=== PATIENT | female | born 1960 | race Caucasian/White ===

== ENCOUNTER → 2018-03-12 01:47 | Outpatient (CLI) | payer BC, SELFPAY ==
--- NOTE | 2018-03-12 10:40 | DI.REPORT_ITS ---
SYMPTOM/DIAGNOSIS: SCREENING, Z12.31 MAMMOGRAM: 03/12 Mammograms were interpreted according to the usual protocol including computer analysis with CAD system, tomosynthesis and C view imaging. The breasts are of moderate density with fairly symmetrical distribution of fibroglandular tissue. No dominant mass or clumped microcalcification is identified in either breast The current examination is compared with previous examinations including February 2017 and there has been no gross interval change in appearance in comparison with the previous studies CONCLUSION: No specific evidence of malignancy at this time. Routine screening examinations are suggested at yearly intervals in this age group according to the ACS/ACR guidelines. Category 1, breast density category B . MQSA ASSESSMENT OF FINDINGS: Negative. Category 1. Patient will receive a letter notifying them of these results. BI-RADS category B. There are scattered areas of fibroglandular density.
== END ==
PROVIDERS: PCP Nurse Practitioner Family; Visit Provider Obstetrics & Gynecology Gynecology
DX: Z12.31 Encounter for screening mammogram for malignant neoplasm of breast (principal)
CPT/HCPCS: 77063; 77067

== ENCOUNTER 2018-06-03 06:50 | Outpatient (CLI) | payer BC, SELFPAY ==
[2018-06-03 08:47] LABS: Anion Gap 7.8 mmol/L (3-11); BUN 23 mg/dL (7-18); CO2 31.2 mmol/L (21.0-32.0); CREATININE 0.86 mg/dL (0.55-1.02); Calcium 9.4 mg/dL (8.5-10.1); Chloride 106 mmol/L (98-107); Cholesterol 207 mg/dL (50-200); Glucose 100 mg/dL (70-100); HDL Cholesterol 58 mg/dL (40-60); LDL CHOLESTEROL 134 mg/dL (<100); Potassium 3.7 mmol/L (3.5-5.1); Sodium 145 mmol/L (136-145); TSH 3.13 uIU/mL (0.358-3.74); Triglyceride 108 mg/dL (30-150)
[2018-06-03 09:04] LABS: FREE T4 0.83 ng/dL (0.76-1.46)
== END 2018-06-03 07:10 ==
PROVIDERS: PCP Nurse Practitioner Family; Visit Provider Nurse Practitioner Family
DX: E78.5 Hyperlipidemia, unspecified (principal); E04.1 Nontoxic single thyroid nodule
CPT/HCPCS: 36415; 80048; 80061; 83721; 83735; 84439; 84443

== ENCOUNTER 2019-03-15 00:13 | Outpatient (CLI) | payer OTHER, SELFPAY ==
--- NOTE | 2019-03-15 10:44 | DI.MAMMO_ITS ---
SYMPTOM/DIAGNOSIS: SCREENING Z12.31 BILATERAL SCREENING MAMMOGRAM: Mammograms were interpreted according to the usual protocol including computer analysis with CAD system, tomosynthesis and C view imaging. Comparison is made with exams from 2014 through 2018 The breasts are composed of scattered fibroglandular densities, breast density category B. No suspicious masses or suspicious microcalcifications are seen. There has been no significant change. IMPRESSION: Category 1, negative mammogram. Yearly screening mammography is recommended. Breast density category B. SA ASSESSMENT OF FINDINGS: Negative. Category 1. Patient will receive a letter notifying them of these results. BI-RADS category B. There are scattered areas of fibroglandular density.
== END 2019-03-15 00:33 ==
PROVIDERS: PCP Nurse Practitioner Family; Visit Provider Obstetrics & Gynecology Gynecology
DX: Z12.31 Encounter for screening mammogram for malignant neoplasm of breast (principal)
CPT/HCPCS: 77063; 77067

== ENCOUNTER 2019-05-30 08:30 | Emergency (ER) | payer OTHER, SELFPAY ==
[2019-05-30 08:33] VITALS: BP 162/87; PULSE 61; TEMP 36.6; O2SAT 95
[2019-05-30 08:40] VITALS: RESP 18
--- NOTE | 2019-05-30 08:48 | DI.RAD_ITS ---
EXAM: XR CHEST 2V PA LATERAL INDICATION: Unprovoked hemoptysis. COMPARISON: CHEST 2 VIEWS PA,LAT from 10/17/2017 TECHNIQUE: 2D digital imaging was performed. FINDINGS: Heart size and pulmonary vasculature are unremarkable. The lungs are clear. No pleural effusion or pneumothorax is identified. Age-appropriate degenerative changes are seen in the spine. IMPRESSION: No acute pulmonary process.
--- NOTE | 2019-05-30 08:56 | ED.GENADUL_ITS ---
Discharge Plan Disposition Patient Disposition: HOME Condition: Stable Discharge Details Chief Complaint: GenMedical Clinical Impression: Coughing up blood Primary Care Provider: Liyah Weaver ED Provider: Kaushal Calvillo Home Meds and New Rx's Prescriptions: No Action estradiol [Yuvafem] 10 mcg tablet 10 mcg VG twice weekly Qty: 16 RF: 6 topiramate [Topamax] 100 mg tablet 100 mg PO HS Qty: 30 RF: 11 multivitamin [Daily Multi-Vitamin] 1 EACH tablet 1 ea PO DAILY RF: 0 aspirin [Aspir-81] 81 MG tablet,delayed release (DR/EC) 81 mg PO DAILY RF: 0 omega-3 fatty acids-fish oil 1 EACH capsule 1 ea PO DAILY RF: 0 losartan 50 mg tablet 50 mg PO DAILY Qty: 90 RF: 4 hydrochlorothiazide 25 mg tablet 12.5 mg PO DAILY Qty: 45 RF: 4 Discharge Instructions Additional Instructions: 1. Drink plenty of fluids. 2. Continue all medications as prescribed. 3. Follow-up with your doctor for reevaluation and possible further testing. 4. Return for recurrent, worsening coughing up of blood. Return to the Emergency Department (ED) if your condition worsens, does not improve as expected, or for ANY other concerns. Specifically, return if you have new or uncontrolled pain, worsening fever, difficulty breathing, vomiting, or are unable to drink fluids. Discharge Data Discharge Date/Time-TO BE ENTERED AT DEPARTURE: 05/30/19 10:19 Medical Decision Making 59-year-old with unremarkable past medical history presents for evaluation of acute unprovoked hemoptysis. Has had multiple episodes starting late last night and persisting through this morning while outside doing her chores. Onset not associate any specific other constitutional complaints including no infectious symptoms, chest pain or dyspnea, or atypical leg pain or swelling. Nonfocal exam. Chest x-ray negative labs normal including negative hemogram, coagulation studies, and UA. Patient observed in the ED with no further episodes of hemoptysis and remained stable with normal vital signs. Discussed unclear etiology including a reassuring negative chest x-ray. Discharged with a plan for outpatient PCP follow-up and additional testing as per recurrent hemoptysis or not. Also discussed need to return to the ED for any progressive symptoms. Given usual customary return instructions the time of discharge. Medical Records Medical records reviewed: Yes I reviewed the patient's medical records. Lab Data Lab results reviewed: Yes I reviewed the patient's lab results. Lab results narrative: Normal hemoglobin, PTT, INR HPI 59-year-old woman with a past medical history which includes essential hypertension, essential tremor, hyperlipidemia, and GERD. She is chronically on aspirin, hydrochlorothiazide, losartan, and a PPI for her GERD. She presents with new onset hemoptysis. She notes developing cough late yesterday evening and subsequently was unable to lie supine because of a cough reflex from that position. She had intermittent coughing with associated phlegm production overnight but had been swallowing her phlegm and did not note its color. This morning, she spit out phlegm after coughing and noted that it was bright red/bloody. She has had persistent bloody phlegm production with each episode of coughing. She denies fever/chills, dyspnea, palpitations, pleuritic chest pain, diaphoresis, or subjective fatigue. She has mild increase in throat discomfort from coughing. She denies abdominal pain, change in bowel habits, me mackenzie, hematochezia. She has had no atypical lower extremity swelling or pain. She denies a history of any previous bleeding, VTE, or anticoagulant use. General Date/Time Provider Initiated Documentation: 05/30/19 08:38 . Related Data Home Medications Medication Instructions Recorded Confirmed aspirin [Aspir-81] 81 mg PO DAILY tab-cap 11/29/12 05/30/19 multivitamin [Daily Multi-Vitamin] 1 ea PO DAILY tab-cap 11/29/12 05/30/19 omega-3 fatty acids-fish oil 1 ea PO DAILY tab.chew 11/29/12 05/30/19 losartan 50 mg tablet 50 mg PO DAILY #90 tab-cap 08/31/18 05/30/19 hydrochlorothiazide 25 mg tablet 12.5 mg PO DAILY #45 tab-cap 10/04/18 05/30/19 estradiol 10 mcg vaginal tablet 10 mcg VG twice weekly #16 tab 12/17/18 05/30/19 topiramate 100 mg tablet 100 mg PO HS #30 tab-cap 03/28/19 05/30/19 Previous Rx's Medication Instructions Recorded losartan 50 mg tablet 50 mg PO DAILY #90 tab-cap 08/31/18 hydrochlorothiazide 25 mg tablet 12.5 mg PO DAILY #45 tab-cap 10/04/18 estradiol 10 mcg vaginal tablet 10 mcg VG twice weekly #16 tab 12/17/18 topiramate 100 mg tablet 100 mg PO HS #30 tab-cap 03/28/19 Allergies Allergy/AdvReac Type Severity Reaction Status Date / Time honey Allergy Severe throat Verified 03/28/19 11:22 closes amoxicillin Allergy Swellling Unverified 03/28/19 11:22 of tongue lisinopril AdvReac Severe cough Unverified 03/28/19 11:22 carame AdvReac Mild migraine Uncoded 03/28/19 11:22 peanuts AdvReac Mild migraine Uncoded 03/28/19 11:22 General Stated Complaint: GenMedical PHILIPP: 4 Review of Systems All systems reviewed & are unremarkable except as noted in HPI and below PFSH Medical History Essential hypertension (Chronic 07/15/13) Essential tremor (Chronic) Gastroesophageal reflux disease (Chronic) Hyperlipidemia (Chronic) Non-toxic uninodular goiter (Chronic) Surgical History History of bladder suspension procedure (Resolved ~2004) [place]. 2004. History of hysterectomy for benign disease (Acute ~1997) For DUB; Ovaries conserved S/P left rotator cuff repair (Acute ~07/2015) S/P right rotator cuff repair (Acute ~02/2012) Family History Mother , at 66 Senile dementia Multiple sclerosis Father , at 71 Diabetes Essential hypertension Heart disease Brother No problems noted. Brother Epilepsy Osteoporosis medication induced Brother Crohn's disease Son No problems noted. Daughter Breast lump Maternal Grandfather , of [place] in his 80s Essential hypertension Heart disease Myocardial infarction Maternal Grandmother , of meningitis No problems noted. Paternal Grandfather , Of old age No problems noted. Paternal Grandmother , of colon cancer in her 90s Colon cancer in her 90s Social History Smoking/Tobacco Use Status: Never Alcohol Intake: current Alcohol Intake frequency: a few times a month Alcohol type: beer and hard liquor Substance use type: does not use Household members: spouse and other Details: Laura. 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 Works at his [employer]. Issues with obesity, is considering gastric bypass. [employer]. . is like training school in [place]. History History 2 Para Hx # Term Pregnancies 2 Multiple births Hx # Pregnancies Ectopic pregnancies AB induced Hx Number of Living Children 2 AB spontaneous Exam Narrative Exam Narrative: Nursing note and vital signs have been reviewed and noted. GENERAL: alert, active, no acute distress, well -hydrated, well-nourished HEENT: atraumatic/normocephalic, PERRLA, EOMI, conjunctiva clear, external ears/canals normal, nasal mucosa normal NECK: supple, full range of motion, no mass, normal lymphadenopathy, no thyromegaly CARDIOVASCULAR: RRR, no murmurs, nl pulses, no edema PULMONARY: nl effort, no audible wheezing or stridor, nl breath sounds with no focal deficit. no chest wall tenderness ABDOMEN: soft, non-tender, non-distended, no mass, no organomegaly EXTREMITY: normal muscle tone, all joints with FROM, no deformity or tenderness SKIN: no exanthem appreciated NEURO: gross motor exam normal, normal stance and gait PSYCH: alert and oriented, Course Vital Signs Vital signs: Vital Signs Temperature 97.9 F 05/30/19 08:33 Pulse 61 05/30/19 08:33 Blood Pressure 162/87 H 05/30/19 08:33 Pulse Oximetry 95 05/30/19 08:33 Temperature 97.9 F 05/30/19 08:33 Temperature Source Skin 05/30/19 08:33 Pulse 61 05/30/19 08:33 Respiratory Rate 18 05/30/19 08:40 Respiratory Effort Non-Labored 05/30/19 08:40 Respiratory Depth Normal 05/30/19 08:40 Respiratory Pattern Normal 05/30/19 08:40 Blood Pressure 162/87 H 05/30/19 08:33 Blood Pressure Position Sitting 05/30/19 08:33 Pulse Oximetry 95 05/30/19 08:33 Oxygen Delivery Method Room Air 05/30/19 08:33 Oxygen Flow Rate 0 05/30/19 08:33 Pain Level 0 05/30/19 08:33
[2019-05-30 09:08] LABS: Abs Immature Grans 0.01 k/cumm (0.0-0.09); Absolute Basophil Count 0.02 k/cumm (0.0-0.2); Absolute Eosinophil Count 0.07 k/cumm (0.0-0.7); Absolute Lymphocyte Count 1.71 k/cumm (1.2-3.4); Absolute Monocyte Count 0.23 k/cumm (0.11-0.7); Absolute Neutrophil Count 3.03 k/cumm (1.2-6.7); Basophils % 0.4; Eosinophils % 1.4; HCT 39.5 % (36.0-46.0); HGB 13.6 g/dL (12.0-15.5); Immature Grans % 0.2; Lymphocytes % 33.7; Mean Corp. HGB Concentration 34.4 g/dL (32.0-36.0); Mean Corpuscular Hemoglobin 29.2 pg (27.0-33.0); Mean Corpuscular Volume 84.9 fL (80-95); Mean Platelet Volume 9.9 fL (8.0-11.0); Monocytes % 4.5; Neutrophils % 59.8; Platelet Count 265 x1000/uL (130-400); RBC 4.65 m/cumm (4.00-5.20); RBC Distribution Width 12.6 % (11.7-14.6); White Blood Cell Count 5.07 k/cumm (4.4-10.8)
[2019-05-30 09:22] LABS: PTT Activated 24.8 sec (21.0-31.4); Prothrombin Time 10.2 sec (9.3-11.0)
[2019-05-30] MEDS: Normal Saline 1,000 ML 150 ML IV (09:25)
[2019-05-30 09:40] LABS: Anion Gap 9.7 mmol/L (3-11); BUN 17 mg/dL (7-18); CO2 26.3 mmol/L (21.0-32.0); CREATININE 0.86 mg/dL (0.55-1.02); Calcium 9.4 mg/dL (8.5-10.1); Chloride 108 mmol/L (98-107); Glucose 97 mg/dL (70-100); Potassium 3.1 mmol/L (3.5-5.1); Sodium 144 mmol/L (136-145)
[2019-05-30 10:11] LABS: Bilirubin Negative (Negative); Blood Negative (Negative); Clarity Clear (Clear); Glucose Negative (Negative); Ketones Negative (Negative); Leukocyte Esterase Negative (Negative); Nitrite Negative (Negative); Urobilinogen 0.2 EU/dL (Up TO 0.2); pH 5.5 (5-8)
--- NOTE | 2019-05-30 11:13 | NUR.NOTE ---
i have called to make an appointment at [facility] to address hypertension, spoke with Ailyn (healthcare receptionist) and she has scheduled the patient for June 07 at 10 am, Ailyn states that Delisa is a new patient and should keep her original appointment on 06/28. i have spoke with the patient and let her know when her new appointment is and to keep the old one. i have advised Delisa she should also call [facility] if she cant make it to the appointment. Nursing Note:
== END 2019-05-30 10:19 | disposition home or self-care (01) ==
PROVIDERS: Emergency Provider Emergency Medicine; PCP Nurse Practitioner Family
DX: R04.2 Hemoptysis (principal)
CPT/HCPCS: 36415; 80048; 96360; 99283; 71046; 81003; 85025; 85610; 85730

== ENCOUNTER 2019-06-14 00:53 | Outpatient (CLI) | payer OTHER, SELFPAY ==
--- NOTE | 2019-06-14 11:16 | DI.US_ITS ---
EXAM: US THYROID CLINICAL HISTORY: Re-eval goiter, nontoxic uninodular goiter, E04.1 TECHNIQUE: Ultrasound performed using standard protocol. COMPARISON: No exams were available for comparison FINDINGS: The right lobe of the thyroid measures 4.2 x 1.0 x 1.6 cm. A 6 millimeter circumscribed hypoechoic n odule is seen in the mid to lower pole of the right lobe. A 7 x 7 x 9 millimeter slightly hypoechoic smoothly marginated nodule is seen at the lower pole of the right lobe. The left lobe measures 4.1 x 1.0 x 1.6 cm. A 5 millimeter circumscribed hypoechoic nodule is seen in the mid left lobe. An additio nal 5 millimeter isoechoic nodule is seen near the lower pole of the left lobe. There are normal appe aring anterior cervical chain lymph nodes. IMPRESSION: Small bilateral benign appearing nodules. Overall normal size gland.
== END 2019-06-14 01:13 ==
PROVIDERS: PCP Nurse Practitioner Family; Visit Provider Nurse Practitioner Family
DX: E04.1 Nontoxic single thyroid nodule (principal); E04.2 Nontoxic multinodular goiter
CPT/HCPCS: 76536

== ENCOUNTER 2019-06-15 00:50 | Outpatient (CLI) | payer OTHER, SELFPAY ==
[2019-06-15 10:15] LABS: Hemoglobin A1C 5.8 % (4.5-6.2)
[2019-06-15 10:17] LABS: FREE T4 0.93 ng/dL (0.76-1.46)
[2019-06-15 11:01] LABS: Calculated LDL 119 mg/dL; Cholesterol 185 mg/dL (<200); HDL Cholesterol 52 mg/dL (40-60); Triglyceride 72 mg/dL (<150)
== END 2019-06-15 01:10 ==
PROVIDERS: PCP Nurse Practitioner Family; Visit Provider Nurse Practitioner Family
DX: E78.5 Hyperlipidemia, unspecified (principal); E04.1 Nontoxic single thyroid nodule
CPT/HCPCS: 36415; 80061; 83036; 84439; 84443

== ENCOUNTER 2020-03-16 03:57 | Outpatient (CLI) | payer OTHER, SELFPAY ==
--- NOTE | 2020-03-16 13:00 | DI.MAMMO_ITS ---
EXAM: MG MAMMO SCREENING CLINICAL HISTORY: screening TECHNIQUE: Mammograms were interpreted according to the usual protocol including computer analysis w [employer] CAD system, tomosynthesis and C-view imaging. COMPARISON: FINDINGS: The breasts are of moderate density with fairly symmetrical distribution of fibroglandular tissue. N o dominant mass or clumped microcalcification is identified in either breast. The current examinatio n is compared with previous examinations including February 2019 and there has been no gross interval c hange in appearance in comparison with the prior studies. IMPRESSION: No specific evidence of malignancy at this time. Routine screening examinations are suggested at yea rly intervals in this age group according to the ACS ACR guidelines. BI-RADS Category 1 - Negative Breast Density - Category B - Scattered areas of fibroglandular density
== END 2020-03-16 04:17 ==
PROVIDERS: PCP Nurse Practitioner Family; Visit Provider Nurse Practitioner Family
DX: Z12.31 Encounter for screening mammogram for malignant neoplasm of breast (principal)
CPT/HCPCS: 77063; 77067

== ENCOUNTER 2020-06-13 02:57 | Outpatient (CLI) | payer OTHER, SELFPAY ==
[2020-06-13 08:53] LABS: Hemoglobin A1C 5.7 % (<5.7)
[2020-06-13 09:02] LABS: Anion Gap 6.3 mmol/L (3-11); BUN 20 mg/dL (7-18); CO2 30.7 mmol/L (21.0-32.0); Calcium 9.6 mg/dL (8.5-10.1); Calculated LDL 127 mg/dL (<100); Chloride 108 mmol/L (98-107); Cholesterol 207 mg/dL (<200); Estimated GFR 56.56 (mL/min/1.73m2); Glucose 96 mg/dL (74-106); HDL Cholesterol 60 mg/dL (40-60); Potassium 3.5 mmol/L (3.5-5.1); Sodium 145 mmol/L (136-145); Triglyceride 101 mg/dL (<150)
== END 2020-06-13 03:17 ==
PROVIDERS: PCP Nurse Practitioner Family; Visit Provider Nurse Practitioner Family
DX: I10 Essential (primary) hypertension (principal); R73.03 Prediabetes
CPT/HCPCS: 36415; 80048; 80061; 83036

== ENCOUNTER 2021-03-18 01:47 | Outpatient (CLI) | payer OTHER, SELFPAY ==
--- NOTE | 2021-03-18 07:30 | DI.MAMMO_ITS ---
Exam(s) MAMMO SCREENING EXAM: MAMMO SCREENING CLINICAL HISTORY: screening,Z12.39 TECHNIQUE: Bilateral full field digital CC and MLO mammographic images were obtained with 3D tomosyn thesis and utilizing computer aided detection (CAD). COMPARISON: Available for comparison. FINDINGS: Masses/Architectural Distortion: None seen. Microcalcifications: No suspicious pleomorphic-type are seen. Skin Thickening/Nipple Retraction: None. IMPRESSION: 1. No significant interval change with no specific features of malignancy noted. 2. Unless there is more urgent need, screening mammography is recommended, as per [place] [employer] guidelines. BI-RADS Category 1 - Negative Breast Density - Category B - Scattered areas of fibroglandular density Breast density category C or D implies that the patient has dense breast tissue. Dense breast tissue is very common and is not abnormal but dense breast tissue can make it harder to find cancer on a ma mmogram. Also, dense breast tissue may increase their breast cancer risk. This information about the result of the mammogram report was provided to the patient to raise their awareness. Use this report when you speak with the patient about their risks for breast cancer, which includes their family hist ory. At that time, you may recommend for more screening tests (Ultrasound or MRI) as they might be us eful based on their risk. A negative radiographic report should not delay biopsy if a dominant or clinically suspicious mass is present. Up to ten percent of cancers are not identified on mammography. A negative report may reinforce clinical impression. Adenosis and dense breasts may obscure an underlying neoplasm. False positive reports average 6 to 10%. Patient will receive a letter notifying them of these results.
== END 2021-03-18 02:07 ==
PROVIDERS: PCP Nurse Practitioner Family; Visit Provider Nurse Practitioner Women's Health
DX: Z12.31 Encounter for screening mammogram for malignant neoplasm of breast (principal)
CPT/HCPCS: 77063; 77067

== ENCOUNTER 2021-06-14 14:28 | Outpatient (REF) | payer OTHER, SELFPAY ==
[2021-06-16 12:38] LABS: COVID-19 RT-PCR UVMMC Result Negative (Negative)
== END 2021-06-14 14:29 | disposition home or self-care (01) ==
LOC: NCHCN 14:28
PROVIDERS: PCP Nurse Practitioner Family; Visit Provider Physician Assistant Medical
DX: Z20.822 Contact with and (suspected) exposure to COVID-19 (principal)
CPT/HCPCS: U0003

== ENCOUNTER 2021-07-08 14:29 | Outpatient (REF) | payer OTHER, SELFPAY | END 2021-07-08 14:30 | disposition home or self-care (01) | LOC: LBN 14:29 | PROVIDERS: PCP Nurse Practitioner Family; Visit Provider Nurse Practitioner Women's Health | DX: R30.0 Dysuria (principal) | CPT/HCPCS: 87086 ==

== ENCOUNTER 2021-07-09 02:24 | Outpatient (CLI) | payer OTHER, SELFPAY ==
[2021-07-09 12:02] LABS: Hemoglobin A1C 5.8 % (<5.7)
== END 2021-07-09 02:25 | disposition home or self-care (01) ==
LOC: LBO 02:24
PROVIDERS: PCP Nurse Practitioner Family; Visit Provider Nurse Practitioner Women's Health
DX: R73.03 Prediabetes (principal)
CPT/HCPCS: 36415; 83036

== ENCOUNTER 2021-09-25 15:05 | Outpatient (REF) | payer BC, SELFPAY ==
[2021-09-25 12:34] LABS: BUN 19 mg/dL (7-18); CREATININE 0.8 mg/dL (0.55-1.02); Calcium 9.4 mg/dL (8.5-10.1); Calculated LDL 129 mg/dL (<100); Chloride 104 mmol/L (98-107); Cholesterol 206 mg/dL (<200); Glucose 99 mg/dL (74-106); HDL Cholesterol 54 mg/dL (40-60); Potassium 3.6 mmol/L (3.5-5.1); Sodium 141 mmol/L (136-145); TSH (W/Ref FT4) 1.41 uIU/mL (0.36-3.74); Triglyceride 118 mg/dL (<150)
== END 2021-09-25 15:06 | disposition home or self-care (01) ==
LOC: NCHCN 15:05
PROVIDERS: Visit Provider Nurse Practitioner Family
DX: I10 Essential (primary) hypertension (principal); E78.5 Hyperlipidemia, unspecified; E04.9 Nontoxic goiter, unspecified
CPT/HCPCS: 80048; 80061; 84443

== ENCOUNTER 2022-01-21 14:11 | Outpatient (REF) | payer BC, SELFPAY ==
[2022-01-21 15:59] LABS: HCT 37.5 % (36.0-46.0); HGB 12.8 g/dL (11.2-15.7); MCH 29.3 pg (27.0-33.0); MCHC 34.1 % (32.0-36.0); MCV 86 fL (80-95); MPV 11.7 fL (8.0-11.0); Platelet Count 230 10^3/uL (130-400); RBC 4.37 10^6/uL (3.93-5.22); RDW 12.4 % (11.7-14.6); RDW-SD 39.3 fL; WBC 5.96 10^3/uL (4.4-10.8)
[2022-01-21 16:09] LABS: ALT 29 U/L (14-59); AST 21 U/L (15-37); Albumin 3.8 g/dL (3.4-5.0); Alkaline Phosphatase 69 U/L (46-116); Anion Gap 6.4 mmol/L (3-11); BUN 21 mg/dL (7-18); Bilirubin, Total 0.3 mg/dL (0.2-1.0); CO2 29.6 mmol/L (21.0-32.0); CREATININE 0.7 mg/dL (0.55-1.02); Calcium 9.1 mg/dL (8.5-10.1); Chloride 105 mmol/L (98-107); Glucose 92 mg/dL (74-106); Sodium 141 mmol/L (136-145); Total Protein 6.8 g/dL (6.4-8.2)
[2022-01-21 18:43] LABS: Hemoglobin A1C 5.6 % (<5.7)
[2022-01-22 11:05] LABS: Lyme Ab w Rflx to Lyme Confirm Negative (Negative)
[2022-01-23 14:07] LABS: Anaplasma phagocytophilum Negative (Negative); B. miyamotoi PCR Negative (Negative); Babesia divergens/MO-1 Negative (Negative); Babesia duncani Negative (Negative); Babesia microti Negative (Negative); Ehrlichia chaffeensis Negative (Negative); Ehrlichia ewingii/canis Negative (Negative); Ehrlichia muris eauclairensis Negative (Negative)
== END 2022-01-21 14:12 | disposition home or self-care (01) ==
LOC: NCHCN 14:11
PROVIDERS: Visit Provider Physician Assistant Medical
DX: R73.03 Prediabetes (principal); I10 Essential (primary) hypertension; R53.83 Other fatigue
CPT/HCPCS: 80053; 85027; 87798; 83036; 86618

== ENCOUNTER 2022-02-07 20:07 | Outpatient (REF) | payer BC, SELFPAY ==
[2022-02-07 16:12] LABS: BUN 23 mg/dL (7-18); Calcium 9.2 mg/dL (8.5-10.1); Chloride 105 mmol/L (98-107); Estimated GFR 56.37 (mL/min/1.73m2); Glucose 95 mg/dL (74-106); Potassium 3.1 mmol/L (3.5-5.1); Sodium 142 mmol/L (136-145)
== END 2022-02-07 20:08 | disposition home or self-care (01) ==
LOC: NCHCN 20:07
PROVIDERS: Visit Provider Physician Assistant Medical
DX: E87.6 Hypokalemia (principal)
CPT/HCPCS: 80048

== ENCOUNTER 2022-02-26 20:11 | Outpatient (REF) | payer BC, SELFPAY ==
[2022-02-26 17:00] LABS: BUN 18 mg/dL (7-18); CO2 28.1 mmol/L (21.0-32.0); CREATININE 0.8 mg/dL (0.55-1.02); Glucose 124 mg/dL (74-106)
[2022-02-26 17:27] LABS: Anion Gap 6.9 mmol/L (3-11); Chloride 109 mmol/L (98-107); Potassium 3.8 mmol/L (3.5-5.1); Sodium 144 mmol/L (136-145)
== END 2022-02-26 20:12 | disposition home or self-care (01) ==
LOC: NCHCN 20:11
PROVIDERS: Visit Provider Physician Assistant Medical
DX: E87.6 Hypokalemia (principal)
CPT/HCPCS: 80048; 80053

== ENCOUNTER → 2022-03-19 01:59 | Outpatient (CLI) | payer BC, SELFPAY ==
--- NOTE | 2022-03-19 11:45 | DI.MAMMO_ITS ---
Exam(s) MAMMO SCREENING EXAM: MAMMO SCREENING CLINICAL HISTORY: screening. TECHNIQUE: Bilateral full field digital CC and MLO mammographic images were obtained with 3D tomosyn thesis and utilizing computer aided detection (CAD). COMPARISON: Prior mammograms were reviewed, the most recent being February 2021. FINDINGS: No new significant findings in left breast. Towards the medial aspect of the right breast there is an asymmetric density located 6 cm in from the nipple, more evident on prior studies. On 3D imaging through this study this has more the appearanc e of overlapping shadows than a true concerning finding. No malignant-appearing microcalcification g roups in this region or elsewhere in either breast. Also no significant architectural distortion at this level nor elsewhere in either breast. IMPRESSION: No radiographic evidence of malignancy. BI-RADS Category 2 - Benign Findings Breast Density - Category B - Scattered areas of fibroglandular density Breast density Category C or D implies that the patient has dense breast tissue. Dense breast tissue can make it harder to find cancer on a mammogram. Dense breast tissue is also associated with an incr eased risk of breast cancer. This information about the result of the mammogram report was provided to the patient to raise their awareness. Use this report when you speak with the patient about their risks for breast cancer, which includes their family history. At that time, you may recommend additional screening tests (Ultrasoun d or MRI) as these tests may add significant information. A negative radiographic report should not delay biopsy if a dominant or clinically suspicious mass is present. Up to ten percent of cancers are not identified on mammography. A negative report may reinforce clinical impression. Adenosis and dense breasts may obscure an underlying neoplasm. False positive reports average 6 to 10%. Patient will receive a letter notifying them of these results.
== END ==
PROVIDERS: Visit Provider Nurse Practitioner Women's Health
DX: Z12.31 Encounter for screening mammogram for malignant neoplasm of breast (principal); N64.59 Other signs and symptoms in breast
CPT/HCPCS: 77063; 77067

== ENCOUNTER 2022-04-07 19:40 | Outpatient (REF) | payer BC, SELFPAY ==
[2022-04-07 20:29] LABS: Anion Gap 6.5 mmol/L (3-11); BUN 17 mg/dL (7-18); CO2 29.5 mmol/L (21.0-32.0); CREATININE 0.8 mg/dL (0.55-1.02); Calcium 9.4 mg/dL (8.5-10.1); Chloride 106 mmol/L (98-107); Estimated GFR 83.78 (mL/min/1.73m2); Glucose 112 mg/dL (74-106); Potassium 3.7 mmol/L (3.5-5.1); Sodium 142 mmol/L (136-145)
== END 2022-04-07 19:41 | disposition home or self-care (01) ==
LOC: NCHCN 19:40
PROVIDERS: PCP Physician Assistant Medical; Visit Provider Physician Assistant Medical
DX: I10 Essential (primary) hypertension (principal)
CPT/HCPCS: 80048

== ENCOUNTER 2022-04-21 11:59 | Outpatient (REF) | payer BC, SELFPAY ==
[2022-04-21 16:33] LABS: Anion Gap 8.3 mmol/L (3-11); BUN 25 mg/dL (7-18); CO2 32.7 mmol/L (21.0-32.0); CREATININE 0.9 mg/dL (0.55-1.02); Calcium 9.9 mg/dL (8.5-10.1); Chloride 101 mmol/L (98-107); Estimated GFR 72.73 (mL/min/1.73m2); Glucose 103 mg/dL (74-106); Sodium 142 mmol/L (136-145)
[2022-04-21 16:50] LABS: Potassium 2.9 mmol/L (3.5-5.1)
== END 2022-04-21 12:00 | disposition home or self-care (01) ==
LOC: NCHCN 11:59
PROVIDERS: PCP Physician Assistant Medical; Visit Provider Physician Assistant Medical
DX: E87.6 Hypokalemia (principal); I10 Essential (primary) hypertension
CPT/HCPCS: 80048

== ENCOUNTER 2022-04-25 16:11 | Outpatient (REF) | payer BC, SELFPAY ==
[2022-04-25 20:07] LABS: Anion Gap 6.7 mmol/L (3-11); BUN 25 mg/dL (7-18); CO2 31.3 mmol/L (21.0-32.0); CREATININE 0.8 mg/dL (0.55-1.02); Calcium 9.6 mg/dL (8.5-10.1); Chloride 104 mmol/L (98-107); Estimated GFR 83.78 (mL/min/1.73m2); Glucose 129 mg/dL (74-106); Sodium 142 mmol/L (136-145)
== END 2022-04-25 16:12 | disposition home or self-care (01) ==
LOC: NCHCN 16:11
PROVIDERS: PCP Physician Assistant Medical; Visit Provider Physician Assistant Medical
DX: E87.6 Hypokalemia (principal)
CPT/HCPCS: 80048

== ENCOUNTER 2022-05-05 11:56 | Outpatient (REF) | payer BC, SELFPAY ==
[2022-05-05 16:43] LABS: Anion Gap 7.2 mmol/L (3-11); BUN 14 mg/dL (7-18); CO2 25.8 mmol/L (21.0-32.0); CREATININE 0.9 mg/dL (0.55-1.02); Calcium 9.2 mg/dL (8.5-10.1); Chloride 110 mmol/L (98-107); Estimated GFR 72.73 (mL/min/1.73m2); Glucose 77 mg/dL (74-106); Potassium 3.8 mmol/L (3.5-5.1); Sodium 143 mmol/L (136-145)
== END 2022-05-05 11:57 | disposition home or self-care (01) ==
LOC: NCHCN 11:56
PROVIDERS: PCP Physician Assistant Medical; Visit Provider Physician Assistant Medical
DX: E87.6 Hypokalemia (principal)
CPT/HCPCS: 80048

== ENCOUNTER 2022-08-01 15:33 | Outpatient (REF) | payer BC, SELFPAY ==
[2022-08-01 16:24] LABS: BUN 17 mg/dL (7-18); CREATININE 0.9 mg/dL (0.55-1.02); Calcium 9.2 mg/dL (8.5-10.1); Calculated LDL 118 mg/dL (<100); Chloride 106 mmol/L (98-107); Cholesterol 202 mg/dL (<200); Estimated GFR 72.28 (mL/min/1.73m2); Glucose 82 mg/dL (74-106); HDL Cholesterol 68 mg/dL (40-60); Magnesium 2.1 mg/dL (1.8-2.4); Potassium 3.9 mmol/L (3.5-5.1); Sodium 141 mmol/L (136-145); Triglyceride 82 mg/dL (<150)
[2022-08-01 23:10] LABS: Estimated Average Glucose 111 mg/dL; Hemoglobin A1C 5.5 % (<5.7)
== END 2022-08-01 15:34 | disposition home or self-care (01) ==
LOC: NCHCN 15:33
PROVIDERS: PCP Physician Assistant Medical; Visit Provider Physician Assistant Medical
DX: E87.6 Hypokalemia (principal); R73.03 Prediabetes
CPT/HCPCS: 80048; 80061; 83036; 83735

== ENCOUNTER → 2023-03-20 00:47 | Outpatient (CLI) | payer BC, SELFPAY ==
--- NOTE | 2023-03-20 12:43 | DI.MAMMO_ITS ---
Exam(s) MAMMO SCREENING EXAM: MAMMO SCREENING CLINICAL HISTORY: SCREENING, Z12.39 TECHNIQUE: Mammograms were interpreted according to the usual protocol including computer analysis w [employer] CAD system, tomosynthesis and C-view imaging. COMPARISON: 2013 through 2021 FINDINGS: The breasts are composed of scattered fibroglandular densities, Breast Density category B. No suspicious masses or suspicious microcalcifications are seen. No skin thickening or abnormal axillary lymph nodes are seen. There has been no significant change from prior exams. IMPRESSION: BI-RADS Category 1, Negative mammogram Yearly screening mammography is recommended. Breast Density - Category B, scattered fibroglandular densities. A negative radiographic report should not delay biopsy if a dominant or clinically suspicious mass is present. Up to ten percent of cancers are not identified on mammography. A negative report may reinforce clinical impression. Adenosis and dense breasts may obscure an underlying neoplasm. False positive reports average 6 to 10%. Patient will receive a letter notifying them of these results.
== END ==
PROVIDERS: PCP Physician Assistant Medical; Visit Provider Physician Assistant Medical
DX: Z12.31 Encounter for screening mammogram for malignant neoplasm of breast (principal)
CPT/HCPCS: 77063; 77067

== ENCOUNTER 2023-08-04 11:00 | Outpatient (REF) | payer BC, SELFPAY ==
[2023-08-04 15:51] LABS: ALT 22 U/L (14-59); AST 19 U/L (15-37); Albumin 3.7 g/dL (3.4-5.0); Alkaline Phosphatase 53 U/L (46-116); Anion Gap 8.8 mmol/L (3-11); BUN 19 mg/dL (7-18); Bilirubin, Total 0.4 mg/dL (0.2-1.0); CO2 25.2 mmol/L (21.0-32.0); CREATININE 0.8 mg/dL (0.55-1.02); Calcium 9.4 mg/dL (8.5-10.1); Calculated LDL 99 mg/dL (<100); Chloride 107 mmol/L (98-107); Cholesterol 188 mg/dL (<200); Estimated GFR 82.74 (mL/min/1.73m2); Glucose 95 mg/dL (74-106); HDL Cholesterol 59 mg/dL (40-60); Potassium 3.9 mmol/L (3.5-5.1); Sodium 141 mmol/L (136-145); Total Protein 6.7 g/dL (6.4-8.2); Triglyceride 153 mg/dL (<150)
[2023-08-04 15:59] LABS: Hemoglobin A1C 5.6 % (<5.7)
== END 2023-08-04 11:01 | disposition home or self-care (01) ==
LOC: NCHCN 11:00
PROVIDERS: PCP Physician Assistant Medical; Visit Provider Physician Assistant Medical
DX: I10 Essential (primary) hypertension (principal); R73.03 Prediabetes
CPT/HCPCS: 80053; 80061; 83036

== ENCOUNTER → 2023-11-26 00:41 | Outpatient (CLI) | payer BC, SELFPAY ==
--- NOTE | 2023-11-26 08:49 | DI.RAD_ITS ---
Exam(s) XR SACRUM COCCYX XR HIP LT COMPLETE AP PELVIS EXAM: XR HIP LT COMPLETE AP PELVIS and XR sacrum/coccyx CLINICAL HISTORY: LT HIP PAIN, M25.559. TECHNIQUE: 2D digital imaging was performed of the left hip and sacrum/coccyx. Five views were obta ined. AP and lateral sacrum and coccyx views and AP pelvis and lateral left hip views were obtained. COMPARISON: No previous for comparison. FINDINGS: BONES: No acute fracture is present. No bony destructive lesion is seen. JOINTS: No dislocation present. The left hip is well maintained as is the right hip. No erosions or ankylosis is seen of the sacroiliac joints. There may be very mild degenerative changes present. Th ere are mild degenerative changes seen at L5-S1. There is a round 7 mm sclerotic focus in the left s acral ala. This is nonspecific. This may represent a bone island. The symphysis pubis is unremarka ble. SOFT TISSUE: Normal. IMPRESSION: 1. Unremarkable radiographs of the left hip. 2. Degenerative changes seen at L5-S1. 3. Question of mild degenerative changes seen in the sacroiliac joints. 4. 7 mm sclerotic focus in the left sacral ala. This may represent a bone island. Please correlate with patient's clinical history. If there is concerning history or history of cancer, bone scan may be obtained for further evaluation. DATA REPOSITORY: RADIATION DOSE DELIVERED:
== END ==
PROVIDERS: PCP Physician Assistant Medical; Visit Provider Physician Assistant Medical
DX: M51.17 Intervertebral disc disorders with radiculopathy, lumbosacral region (principal); M25.552 Pain in left hip
CPT/HCPCS: 72220; 73502

== ENCOUNTER → 2023-12-23 03:42 | Outpatient (CLI) | payer BC, SELFPAY ==
--- NOTE | 2023-12-23 | DI.NM_ITS ---
Exam(s) AK BONE SCAN WHOLE BODY GRP EXAM: AK BONE SCAN WHOLE BODY GRP CLINICAL HISTORY: R93.89 ABNL FINDINGS ON XRAY FROM 11/26/23. TECHNIQUE: Injected Dose: 26 mCi Tc-99m MDP Delayed Images: 2-3 hours. COMPARISON: AK MPI RESTING AND STRESS from 04/25/2015 CR XR HIP LT COMPLETE AP PELVIS from 11/26/2023 CR XR SACRUM COCCYX from 11/26/2023 FINDINGS: Symmetric axial uptake. Bilateral renal excretion is identified. No focal area of intense suspicious uptake is seen. No increased uptake is seen of the radiotracer to correspond to the sclerotic focus i n the left sacral ala. This likely reflects a bone island. IMPRESSION: 1. Unremarkable examination. No evidence of metastatic disease. 2. The sclerotic focus in the left sacral ala likely reflects a bone island. DATA REPOSITORY:
== END ==
PROVIDERS: PCP Physician Assistant Medical; Visit Provider Physician Assistant Medical
DX: R93.89 Abnormal findings on diagnostic imaging of other specified body structures (principal)
CPT/HCPCS: 78306

== ENCOUNTER 2024-02-02 18:18 | Outpatient (REF) | payer BC, SELFPAY ==
[2024-02-02 17:40] LABS: Abs Immature Grans 0.01 10^3/uL (0.0-0.06); Absolute Basophil Count 0.02 10^3/uL (0.0-0.2); Absolute Eosinophil Count 0.07 10^3/uL (0.0-0.7); Absolute Monocyte Count 0.36 10^3/uL (0.1-0.8); Absolute Neutrophil Count 3.58 10^3/uL (1.2-6.7); Basophils % 0.3 %; Eosinophils % 1.2 %; HCT 38.9 % (36.0-46.0); HGB 12.9 g/dL (11.2-15.7); Immature Grans % 0.2 %; Lymphocytes % 29.6 %; MCH 29.5 pg (27.0-33.0); MCHC 33.2 % (32.0-36.0); MCV 89 fL (80-95); MPV 10.8 fL (8.0-11.0); Monocytes % 6.3 %; Neutrophils % 62.4 %; Platelet Count 235 10^3/uL (130-400); RBC 4.37 10^6/uL (3.93-5.22); RDW 11.9 % (11.7-14.6); WBC 5.74 10^3/uL (4.4-10.8)
[2024-02-02 17:58] LABS: Anion Gap 7.6 mmol/L (3-11); BUN 16 mg/dL (7-18); CO2 28.4 mmol/L (21.0-32.0); CREATININE 0.9 mg/dL (0.55-1.02); Calcium 9.4 mg/dL (8.5-10.1); Chloride 107 mmol/L (98-107); Creatine Kinase 90 U/L (26-192); Estimated GFR 71.83 (mL/min/1.73m2); Glucose 97 mg/dL (74-106); Hemoglobin A1C 5.9 % (<5.7); Magnesium 2.2 mg/dL (1.8-2.4); Potassium 4.1 mmol/L (3.5-5.1); Sodium 143 mmol/L (136-145)
== END 2024-02-02 18:19 | disposition home or self-care (01) ==
LOC: NCHCN 18:18
PROVIDERS: PCP Physician Assistant Medical; Visit Provider Physician Assistant Medical
DX: R73.03 Prediabetes (principal); R25.2 Cramp and spasm
CPT/HCPCS: 80048; 82550; 83036; 83735; 85025

== ENCOUNTER 2024-03-22 01:44 | Outpatient (CLI) | payer BC, SELFPAY ==
--- NOTE | 2024-03-22 12:00 | DI.MAMMO_ITS ---
Exam(s) MAMMO SCREENING EXAM: MAMMO SCREENING CLINICAL HISTORY: screening TECHNIQUE: Bilateral full field digital CC and MLO mammographic images were obtained with 3D tomosyn thesis and utilizing computer aided detection (CAD). COMPARISON: Available for comparison. FINDINGS: Masses/Architectural Distortion: None seen. Microcalcifications: No suspicious pleomorphic-type are seen. Skin Thickening/Nipple Retraction: None. IMPRESSION: 1. No significant interval change with no specific features of malignancy noted. 2. Unless there is more urgent need, screening mammography is recommended, as per [employer] guidelines. BI-RADS Category 1 - Negative Breast Density - Category B - Scattered areas of fibroglandular density Breast density category C or D implies that the patient has dense breast tissue. Dense breast tissue is very common and is not abnormal but dense breast tissue can make it harder to find cancer on a ma mmogram. Also, dense breast tissue may increase their breast cancer risk. This information about the result of the mammogram report was provided to the patient to raise their awareness. Use this report when you speak with the patient about their risks for breast cancer, which includes their family hist ory. At that time, you may recommend for more screening tests (Ultrasound or MRI) as they might be us eful based on their risk. A negative radiographic report should not delay biopsy if a dominant or clinically suspicious mass is present. Up to ten percent of cancers are not identified on mammography. A negative report may reinforce clinical impression. Adenosis and dense breasts may obscure an underlying neoplasm. False positive reports average 6 to 10%. Patient will receive a letter notifying them of these results.
== END 2024-03-22 02:04 ==
LOC: DI 01:44
PROVIDERS: PCP Physician Assistant Medical; Visit Provider Nurse Practitioner Women's Health
DX: Z12.31 Encounter for screening mammogram for malignant neoplasm of breast (principal)
CPT/HCPCS: 77063; 77067

== ENCOUNTER 2025-03-29 02:44 | Outpatient (CLI) | payer BC, SELFPAY ==
--- NOTE | 2025-03-29 09:01 | DI.MAMMO_ITS ---
Exam(s) MAMMO SCREENING EXAM: MAMMO SCREENING CLINICAL HISTORY: screening,z12.39 TECHNIQUE: Mammograms were interpreted according to the usual protocol including computer analysis with CAD system, tomosynthesis and C-view imaging. COMPARISON: 2015 through 2023 FINDINGS: The breasts are composed of scattered fibroglandular densities, Breast Density category B. No suspicious masses or suspicious microcalcifications are seen. No skin thickening or abnormal axillary lymph nodes are seen. There has been no significant change from prior exams. IMPRESSION: BI-RADS Category 1, Negative mammogram Yearly screening mammography is recommended. Breast Density - Category B - There are scattered areas of fibroglandular density. Breast density Category C or D implies that the patient has dense breast tissue. Dense breast tissue can make it harder to find cancer on a mammogram. Dense breast tissue is also associated with an increased risk of breast cancer. This information about the result of the mammogram report was provided to the patient to raise their awareness. Use this report when you speak with the patient about their risks for breast cancer, which includes their family history. At that time, you may recommend additional screening tests (Ultrasound or MRI) as these tests may add significant information. A negative radiographic report should not delay biopsy if a dominant or clinically suspicious mass is present. Up to ten percent of cancers are not identified on mammography. A negative report may reinforce clinical impression. Adenosis and dense breasts may obscure an underlying neoplasm. False positive reports average 6 to 10%. Patient will receive a letter notifying them of these results.
== END 2025-03-29 03:04 ==
LOC: DI 02:44
PROVIDERS: PCP Physician Assistant Medical; Visit Provider Nurse Practitioner Women's Health
DX: Z12.31 Encounter for screening mammogram for malignant neoplasm of breast (principal)
CPT/HCPCS: 77063; 77067